=== PATIENT | female | born 1930 | race American Indian/Alaskan Native ===

== ENCOUNTER 2017-08-01 21:55 | Inpatient (IN) | payer MEDICARE, BC, OTHER ==
[~2017-08-01] VITALS: Ht 162.6 cm; Wt 74.8 kg
[~2017-08-01 21:55] MED LIST: ASPIR 8181 MG PO; ASPIRIN EC325 MG PO; ATENOLOL50 MG PO; CARDURA4 MG PO; CIPROFLOXACIN250 MG PO; COUMADIN1 MG PO; COUMADIN5 MG PO; COZAAR50 MG PO; CRESTOR20 MG PO; DAILY VITE1 EACH PO; DOXAZOSIN MESYLA1 MG PO; DOXAZOSIN MESYLA8 MG PO; FELODIPINE ER10 MG PO; FELODIPINE ER5 MG PO; FERROUS SULFAT325 MG PO; FLONASE ALLERG9.9 ML NAS; FUROSEMIDE40 MG PO; GABAPENTIN100 MG PO; GLUCOPHAGE XR500 MG PO; HYDROCODON-ACE1 EA10 PO; LEVOTHYROXINE88 MCG PO; METFORMIN HCL500 MG PO; MIRAPEX0.25 MG PO; NEXIUM20 MG; NEXIUM40 MG PO; NORCO 5-325 TA1 EACH PO; POTASSIUM CHLO10 MEQ PO; VISTARIL25 MG PO; VITAMIN D2000 UNI1 PO; WARFARIN SODIUM1 MG PO
[2017-08-01] MEDS ORDERED: DOXYCYCLINE HY100 MG PO (22:15)
--- OUTSIDE RECORDS SUMMARY | 2017-08-01 22:18 | XMS | Clinical Summary ---
Demographics + + + | Address | [address] [place] [address] RD | | | [place] [address] | + + + | Home Phone | | + + + | Preferred Language | Unknown | + + + | Marital Status | | + + + | Synagogue Affiliation | Unknown | + + + | Race | Unknown | + + + | Ethnic Group | Unknown | + + + Author + + + | Author | [facility] | + + + | Organization | [facility] | + + + | Address | Unknown | + + + | Phone | Unavailable | + + + Support + + + + + | Name | Relationship | Address | Phone | + + + + + | Ernie Folres | ECON | [address] | | | | | [place] | | | | | [address] | | + + + + + | Fahad Flores | ECON | Unknown | | + + + + + Care Team Providers + +------+ + | Care Consultants Intern Name | Role | Phone | + +------+ + | Ulisses Matthews DO | PP | | + +------+ + Allergies + + + + + + | Active Allergy | Reactions | Severity | Noted | Comments | | | | | Date | | + + + + + + | Warfarin | Other (See Comments) | Medium | 06/24/20 | Labile INR | | | | | 13 | | + + + + + + | Chlorpheniramine-Pse | Hives | High | 10/10/19 | | | udoeph | | | 13 | | + + + + + + | Povidone Iodine | Hives | High | 10/10/19 | | | | | | 13 | | + + + + + + | Morphine | Hives | High | 10/10/19 | | | | | | 13 | | + + + + + + | Penicillins | Hives | High | 10/10/19 | | | | | | 13 | | + + + + + + | Vitamin B12 | Hives | High | 10/10/19 | | | | | | 13 | | + + + + + + Current Medications + + +---------+---------+------+------+-------+ | Prescription | Sig. | Disp. | Refills | Star | End | Statu | | | | | | t | Date | s | | | | | | Date | | | + + +---------+---------+------+------+-------+ | pramipexole | Take 0.25 mg by | | | | | Activ | | (MIRAPEX) 0.25 MG | mouth 2 (two) times | | | | | e | | tablet | daily. | | | | | | + + +---------+---------+------+------+-------+ | atenolol | Take 50 mg by mouth | | | | | Activ | | (TENORMIN) 50 MG | daily. | | | | | e | | tablet | | | | | | | + + +---------+---------+------+------+-------+ | triamcinolone | Apply 1 applicator | | | | | Activ | | (KENALOG) 0.5 % | topically 3 (three) | | | | | e | | ointment | times daily as | | | | | | | | needed. | | | | | | + + +---------+---------+------+------+-------+ | fluticasone | 1 spray by Nasal | | | | | Activ | | (FLONASE) 50 MCG/ACT | route 2 (two) times | | | | | e | | nasal spray | daily as needed. | | | | | | + + +---------+---------+------+------+-------+ | levothyroxine | Take 88 mcg by mouth | | | | | Activ | | (SYNTHROID, | every morning | | | | | e | | LEVOTHROID) 88 MCG | before breakfast. | | | | | | | tablet | | | | | | | + + +---------+---------+------+------+-------+ | esomeprazole | Take 40 mg by mouth | | | | | Activ | | (NEXIUM) 40 MG | daily. | | | | | e | | capsule | | | | | | | + + +---------+---------+------+------+-------+ | losartan (COZAAR) | Take 50 mg by mouth | | | | | Activ | | 50 MG tablet | daily. | | | | | e | + + +---------+---------+------+------+-------+ | potassium chloride | Take 20 mEq by mouth | | | | | Activ | | (K-DUR) 10 MEQ | 3 (three) times | | | | | e | | tablet | daily. Take two | | | | | | | | tablets three times | | | | | | | | daily. | | | | | | + + +---------+---------+------+------+-------+ | Magnesium | Take 500 mg by mouth | | | | | Activ | | Gluconate 250 MG | 3 (three) times | | | | | e | | TABS | daily. Take two | | | | | | | | tablets three times | | | | | | | | daily. | | | | | | + + +---------+---------+------+------+-------+ | furosemide (LASIX) | Take 1 tablet by | | | 10/0 | | Activ | | 40 MG tablet | mouth daily. | | | 2/20 | | e | | | | | | 14 | | | + + +---------+---------+------+------+-------+ | felodipine | Take 5 mg by mouth | | | | | Activ | | (PLENDIL) 5 MG 24 hr | daily. | | | | | e | | tablet | | | | | | | + + +---------+---------+------+------+-------+ | rosuvastatin | Take 20 mg by mouth | | | | | Activ | | (CRESTOR) 20 MG | nightly. | | | | | e | | tablet | | | | | | | + + +---------+---------+------+------+-------+ | traMADol (ULTRAM) | Take 50 mg by mouth | | | | | Activ | | 50 MG tablet | every 6 (six) hours | | | | | e | | | as needed for Pain. | | | | | | + + +---------+---------+------+------+-------+ | warfarin | Take 1 mg by mouth | | | 05/0 | | Activ | | (COUMADIN) 1 MG | daily. Pt takes | | | 4/20 | | e | | tablet | different doses per | | | 16 | | | | | day. | | | | | | + + +---------+---------+------+------+-------+ | Cholecalciferol | Take 2,000 Units by | 90 | 3 | 05/0 | | Activ | | (VITAMIN D3) 2000 | mouth daily. | capsule | | 6/20 | | e | | UNITS | | | | 16 | | | | capsuleIndications: | | | | | | | | CKD (chronic kidney | | | | | | | | disease) stage 3, | | | | | | | | GFR 30-59 ml/min, | | | | | | | | Essential | | | | | | | | hypertension, Iron | | | | | | | | deficiency anemia | | | | | | | | due to sideropenic | | | | | | | | dysphagia, | | | | | | | | Proteinuria, Vitamin | | | | | | | | D deficiency | | | | | | | + + +---------+---------+------+------+-------+ Active Problems + + + | Problem | Noted Date | + + + | CKD (chronic kidney disease) stage 3, GFR 30-59 ml/min | 01/17/2014 | + + + + + | Last Assessment & Plan: CKD, stage 3, followed by Dr Rivera. | + + + + + | ONESIMO (acute kidney injury) | 05/07/2013 | + + + | Pulmonary hypertension (HCC) | 05/07/2013 | + + + + + | Overview: Severe. Last Assessment & Plan: Severe Pulmonary | | HTN. Cause not entirely clear. | + + + + + | Proteinuria | 10/09/2012 | + + + + + | Overview: Mild. | + + + + + | HTN (hypertension) with goal to be determined | 10/09/2012 | + + + + + | Last Assessment & Plan: HTN, Hypertensive Heart Disease. | | Hypertension, controlled, continue current meds. | + + + + + | Diabetes mellitus (HCC) | 10/09/2012 | + + + + + | Last Assessment & Plan: DM II, managed by PCP. | + + + + + | Chronic heart failure (HCC) | 10/09/2012 | + + + | Hypothyroidism | 10/09/2012 | + + + | Atrial fibrillation (HCC) | 10/09/2012 | + + + + + | Last Assessment & Plan: Chronic A fib, CVR. 84yo WF, | | recent CVA, right frontal area. Doing relatively well, she is | | back on warfarin being followed by the [place] | | clinic, the amount of warfarin necessary for her appears to be | | 0.5 mg daily, and extremely small dose, but this seems to be | | working for her. Denies any new visual disturbances, dysarthria, | | dysphasia, lateralizing signs or symptoms. Denies any | | significant bleeding or bruising. Tolerating medications. No | | changes in therapy. | + + + + + | Dyslipidemia | 10/09/2012 | + + + | Obesity | 10/09/2012 | + + + | Osteoarthritis | 10/09/2012 | + + + | Vitamin D deficiency | 10/09/2012 | + + + | Iron deficiency anemia | 10/09/2012 | + + + | Secondary hyperparathyroidism (HCC) | 10/09/2012 | + + + | Restless leg syndrome | 10/09/2012 | + + + | Edema of lower extremity | 10/09/2012 | + + + | Chronic low back pain | 10/09/2012 | + + + | Esophageal reflux | 10/09/2012 | + + + | Unspecified disorder of kidney and ureter | 10/09/2012 | + + + | Lichenification and lichen simplex chronicus | 10/09/2012 | + + + Resolved Problems + + + + | Problem | Noted | Resolved | | | Date | Date | + + + + | Iron deficiency | 10/10/19 | | | | 13 | 4 | + + + + Encounters +--------+ + + + + | Date | Type | Specialty | Care Team | Description | +--------+ + + + + | 07/18/ | Documentati | | Kristine Hanks, | | | 2017 | on Only | | [place] | | +--------+ + + + + from Last 3 Months Family History + + +------+ + | Medical History | Relation | Name | Comments | + + +------+ + | Coronary art dis | Father | | | + + +------+ + | Heart failure | Father | | | + + +------+ + | Coronary art dis | Mother | | | + + +------+ + | Heart disease | Mother | | | + + +------+ + | Hypertension | Mother | | | + + +------+ + + +------+ + + | Relation | Name | Status | Comments | + +------+ + + | Father | | | CAD,heart failure | | | | (Age | | | | | 82) | | + +------+ + + | Mother | | | heart disease | | | | (Age | | | | | 87) | | + +------+ + + Social History + +-------+ +--------+------+ | Tobacco Use | Types | Packs/Day | Years | Date | | | | | Used | | + +-------+ +--------+------+ | Never Smoker | | | | | + +-------+ +--------+------+ + + +---------+ + | Alcohol Use | Drinks/We | oz/Week | Comments | | | ek | | | + + +---------+ + | No | | | | + + +---------+ + + + + | Sex Assigned at | Date Recorded | | | | + + + | Not on file | | + + + Last Filed Vital Signs + + + + | Vital Sign | Reading | Time Taken | + + + + | Blood Pressure | 134/55 | 02/25/2016 9:59 AM PST | + + + + | Pulse | 61 | 02/25/2016 9:59 AM PST | + + + + | Temperature | 36.6 C (97.8 F) | 02/25/2016 9:59 AM PST | + + + + | Respiratory Rate | 15 | 02/21/2014 1:12 PM PST | + + + + | Oxygen Saturation | 96% | 02/25/2016 9:59 AM PST | + + + + | Inhaled Oxygen | - | - | | Concentration | | | + + + + | Weight | 63.5 kg (140 lb) | 02/26/2015 12:08 PM PST | + + + + | Height | 160 cm (5' 3") | 02/25/2016 9:59 AM PST | + + + + | Body Mass Index | 24.8 | 02/26/2015 12:08 PM PST | + + + + Plan of Treatment + + + + + | Health Maintenance | Due Date | Last Done | Comments | + + + + + | Diabetic Eye Exam | | | | | | 9 | | | + + + + + | Diabetic Foot Exam | | | | | | 9 | | | + + + + + | Microalbumin | | | | | Screening | 9 | | | + + + + + | Vaccine: | | | | | Dtap/Tdap/Td (1 - | 8 | | | | Tdap) | | | | + + + + + | Vaccine: Zoster (#1) | | | | | | 9 | | | + + + + + | DEXA SCAN SCREENING | | | | | | 4 | | | + + + + + | Vaccine: | | | | | Pneumococcal 65+ | 4 | | | | Low/Medium Risk (1 | | | | | of 2 - PCV13) | | | | + + + + + | Hemoglobin A1c | | 08/03/2016 | | | | 7 | | | + + + + + | Vaccine: Influenza | | | | | (Season Ended) | 8 | | | + + + + + Results Not on filefrom Last 3 Months Insurance + +--------+ +------+-------+ + | Payer | Benefi | Subscriber | Type | Phone | Address | | | t Plan | ID | | | | | | / | | | | | | | Group | | | | | + +--------+ +------+-------+ + | PREMERA | PREMER | xxxxxxxxx | | | [address] [address] | | | A BLUE | | | | [place] | | | [place] | | | | [address] | | | FED | | | | | | | PPO | | | | | + +--------+ +------+-------+ + | REGENCE | REGENC | xxxxxxxxx | | | | | | E-OREG | | | | | | | ON | | | | | + +--------+ +------+-------+ + | /[employer] [facility] | YELLOW | xxxxxxxxx | | | | | PLANS | [place] | | | | | + +--------+ +------+-------+ + | MEDICARE | MEDICA | xxxxxxxxxx | | | [address] | | | RE | | | | [place] [phone] | | | PART A | | | | | | | ONLY | | | | | + +--------+ +------+-------+ + + +--------+ +--------+ + + | Guarantor Name | Accoun | Relation to | Date | Phone | Billing Address | | | t Type | Patient | of | | | | | | | | | | + +--------+ +--------+ + + | JASMYNE FLORES | Person | Self | [birth year] Home: | [address] | | | al/Fam | | [phone] | [phone] | [place] | | | nick | | | [phone] | [address] | + +--------+ +--------+ + +
--- OUTSIDE RECORDS SUMMARY | 2017-08-01 22:18 | XMS | Encounter Summary ---
Demographics + + + | Address | [address] [place] [address] | | | [place] [address] | + + + | Home Phone | | + + + | Preferred Language | Unknown | + + + | Marital Status | | + + + | Gnosticist Affiliation | Unknown | + + + | Race | Unknown | + + + | Ethnic Group | Unknown | + + + Author + + + | Author | [facility] | + + + | Organization | [facility] | + + + | Address | Unknown | + + + | Phone | Unavailable | + + + Support + + + + + | Name | Relationship | Address | Phone | + + + + + | Ernie Flores | ECON | [address] | | | | | [place] | | | | | [address] | | + + + + + | Fahad Flores | Unknown | | + + + + + Care Team Providers + +------+ + | Care Straddle Truck Driver Name | Role | Phone | + +------+ + | Ulisses Matthews DO | PCP | | + +------+ + Encounter Details +--------+ + + + + | Date | Type | Department | Care Team | Description | +--------+ + + + + | 07/18/ | Documentati | [facility] | Kristine Hanks, | | | 2018 | on Only | Cardiology [facility] | [facility] | | | | | [address] | | | | | | [place] | | | | | | [address] | | | | | | [phone] | | | +--------+ + + + + Social History + +-------+ +--------+------+ [...] on file | | + + + as of this encounter Plan of Treatment Not on fileas of this encounter Visit Diagnoses Not on filein this encounter"
--- OUTSIDE RECORDS SUMMARY | 2017-08-01 22:18 | XMS | Clinical Summary ---
Demographics + + + | Address | [address] [place] [address] RD | | | [place] [address] | + + + | Home Phone | | + + + | Preferred Language | Unknown | + + + | Marital Status | | + + + | Islam Affiliation | Unknown | + + + | Race | Unknown | + + + | Ethnic Group | Unknown | + + + Author + + + | Author | [facility] | + + + | Organization | [facility] | + + + | Address | Unknown | + + + | Phone | Unavailable | + + + Support + + + + + | Name | Relationship | Address | Phone | + + + + + | Ernie Flores | ECON | [address] | | | | | [place] | | | | | [address] | | + + + + + | Fahad Flores | ECON | Unknown | | + + + + + Care Team Providers + +------+ + | Care Outpatient Admitting Clerk Name | Role | Phone | + [...] back on warfarin being followed by the [place] | | clinic, the amount of [...] | xxxxxxxxx | | | [address] [address] | | | A BLUE | | | | [place] | | | [place] | | | | [address] | | | FED | | | | | | | PPO | | | | | + +--------+ +------+-------+ + | REGENCE | REGENC | xxxxxxxxx | | | | | | E-OREG | | | | | | | ON | | | | | + +--------+ +------+-------+ + | /[employer] | YELLOW | xxxxxxxxx | | | | | PLANS | [place] | | | | | + +--------+ +------+-------+ + | MEDICARE | MEDICA | xxxxxxxxxx | | | [address] | | | RE | | | | [place] [phone] | | | PART A | | [...] | Self [birth year] Home: | [address] | | | al/Fam | | [phone] | [phone] | [place] | | | nick | | | [phone] | [phone] | + +--------+ +--------+ + +
--- OUTSIDE RECORDS SUMMARY | 2017-08-01 22:18 | XMS | Encounter Summary ---
Demographics + + + | Address | [address] [place] [address] | | | [place] [address] | + + + | Home Phone | | + + + | Preferred Language | Unknown | + + + | Marital Status | | + + + | Zoroastrian Affiliation | Unknown | + + + | Race | Unknown | + + + | Ethnic Group | Unknown | + + + Author + + + | Author | [facility] | + + + | Organization | [facility] | + + + | Address | Unknown | + + + | Phone | Unavailable | + + + Support + + + + + | Name | Relationship | Address | Phone | + + + + + | Ernie Flores | ECON | [address] | | | | | [place] | | | | | [address] | | + + + + + | Fahad Flores | Unknown | | + + + + + Care Team Providers + +------+ + | Care Vp Legal Affairs Name | Role | Phone | + [...] [place] | | | | | | [address] | | | | | | [phone] | | | +--------+ + + + [...]
--- OUTSIDE RECORDS SUMMARY | 2017-08-01 22:18 | XMS | Clinical Summary ---
Demographics + + + | Address | [address] [place] [address] RD | | | [place] [address] | + + + | Home Phone | | + + + | Preferred Language | Unknown | + + + | Marital Status | | + + + | Quaker Affiliation | 1041 | + + + | Race | Unknown | + + + | Ethnic Group | Unknown | + + + Author + + + | Author | [facility] | | | and [place] | + + + | Organization | [facility] | | | and [place] | + + + | Address | Unknown | + + + | Phone | Unavailable | + + + Support + + + + + | Name | Relationship | Address | Phone | + + + + + | Fahad Flores | [place] | [address] | | | | | [place] | | | | | [address] | | + + + + + Care Team Providers + +------+ + | Care Nursery Helper Name | Role | Phone | + +------+ + | Ken Salcido MD | PP | Unavailable | + +------+ + Allergies + + + + + + | Active Allergy | Reactions | Severity | Noted | Comments | | | | | Date | | + + + + + + | Chlorpheniramine | | | | | | Maleate | | | | | + + + + + + | Iodine | | | | | + + + + + + | Morphine | | | | | + + + + + + | Penicillins | | | | | + + + + + + | Propoxyphene | | | 05/14/20 | | | | | | 14 | | + + + + + + | Vitamin B12 | | | | | + + + + + + | Warfarin Sodium | | | | | + + + + + + Current Medications + + +---------+---------+------+------+-------+ | Prescription | Sig. | Disp. | Refills | Star | End | Statu | | | | | | t | Date | s | | | | | | Date | | | + + +---------+---------+------+------+-------+ | ferrous gluconate | 1 tablet by mouth | | | 12/17 | | Activ | | (FERATE) 240 (27 FE) | daily | | | 3 | | e | | MG tablet | | | | 12 | | | + + +---------+---------+------+------+-------+ | losartan (COZAAR) | 1 tablet by mouth | | | 12/17 | | Activ | | 100 MG tablet | twice daily | | | 320 | | e | | | | | | 12 | | | + + +---------+---------+------+------+-------+ | rosuvastatin | Take 20 mg by mouth | | | 12/17 | | Activ | | (CRESTOR) 20 mg | Daily. | | | 320 | | e | | tablet | | | | 12 | | | + + +---------+---------+------+------+-------+ | atenolol | Take 50 mg by mouth | | | 09/1 | | Activ | | (TENORMIN) 50 mg | Daily. | | | 3/20 | | e | | tablet | | | | 12 | | | + + +---------+---------+------+------+-------+ | docusate sodium | Take 100 mg by mouth | | | 1 | | Activ | | (STOOL SOFTENER) 100 | Daily. | | | 3/20 | | e | | mg capsule | | | | 12 | | | + + +---------+---------+------+------+-------+ | aspirin 325 mg | Take 325 mg by mouth | | | 12/17 | | Activ | | tablet | Daily. | | | 3/20 | | e | | | | | | 12 | | | + + +---------+---------+------+------+-------+ | doxazosin | Take 8 mg by mouth | | | 12/17 | | Activ | | (CARDURA) 8 MG | nightly. | | | 3/20 | | e | | tablet | | | | 12 | | | + + +---------+---------+------+------+-------+ | furosemide (LASIX) | 2 tablets every | | | 12/17 | | Activ | | 40 mg tablet | morning and 1 tablet | | | 20 | | e | | | every evening | | | 12 | | | + + +---------+---------+------+------+-------+ | metFORMIN | Take 500 mg by mouth | | | 1 | | Activ | | (GLUCOPHAGE XR) 500 | Daily. | | | 3/20 | | e | | mg 24 hr tablet | | | | 12 | | | + + +---------+---------+------+------+-------+ | hydrOXYzine | Take 25 mg by mouth | | | 091 | | Activ | | pamoate (VISTARIL) | Daily. | | | 320 | | e | | 25 mg capsule | | | | 12 | | | + + +---------+---------+------+------+-------+ | | 1 or 2 tablets every | | | 09/1 | | Activ | | propoxyphene-acetami | 4 hours | | | 3/20 | | e | | nophen (DARVOCET-N | | | | 12 | | | | 100) 100-650 mg per | | | | | | | | tablet | | | | | | | + + +---------+---------+------+------+-------+ | triamcinolone | 1 application | | | 09/1 | | Activ | | (KENALOG) 0.5% | topically 3 times a | | | 3/20 | | e | | ointment | day | | | 12 | | | + + +---------+---------+------+------+-------+ | pramipexole | Take half a tablet | | | 09/1 | | Activ | | (MIRAPEX) 0.25 mg | by mouth twice daily | | | 3/20 | | e | | tablet | each morning and | | | 12 | | | | | evening | | | | | | + + +---------+---------+------+------+-------+ | potassium chloride | 20meq extended | | | 12/17 | | Activ | | (KLOR-CON) 20 MEQ | release tablets. | | | 07/05 | | e | | packet | Take 3 tablets each | | | 12 | | | | | morning and 2 | | | | | | | | tablets each | | | | | | | | evening. | | | | | | + + +---------+---------+------+------+-------+ | fluticasone | 1spray in nostrils 2 | | | 12/17 | | Activ | | (FLONASE) 50 | times a day | | | 07/05 | | e | | mcg/nasal spray | | | | 12 | | | + + +---------+---------+------+------+-------+ | levothyroxine | Take 88 mcg by mouth | | | 12/17 | | Activ | | (SYNTHROID, | Daily. | | | 3 | | e | | LEVOTHROID) 88 mcg | | | | 12 | | | | tablet | | | | | | | + + +---------+---------+------+------+-------+ | multivitamin | 1 tablet by mouth | | | / | | Activ | | (THERAGRAN) per | daily | | | 3/20 | | e | | tablet | | | | 12 | | | + + +---------+---------+------+------+-------+ | felodipine | Take 10 mg by mouth | | | 12/17 | | Activ | | (PLENDIL) 10 MG 24 | Daily. | | | 320 | | e | | hr tablet | | | | 12 | | | + + +---------+---------+------+------+-------+ | RABEprazole | Take 20 mg by mouth | | | 12/17 | | Activ | | (ACIPHEX) 20 MG | Daily. | | | 320 | | e | | tablet | | | | 12 | | | + + +---------+---------+------+------+-------+ | gabapentin | 1 capsule by mouth | 120 | 1 | 05/2 | | Activ | | (NEURONTIN) 100 mg | at bedtime for 7 | capsule | | 20 | | e | | capsuleIndications: | days; then twice | | | 14 | | | | Lumbar spinal | daily for 7 days; | | | | | | | stenosis, Lumbalgia, | then three times | | | | | | | Lumbar | daily for 7 days; | | | | | | | radiculopathy, | then 1 qAM, 1 qNoon, | | | | | | | Neuropathy of both | and 2 qHS | | | | | | | feet | | | | | | | + + +---------+---------+------+------+-------+ Active Problems + + + | Problem | Noted Date | + + + | PURE HYPERCHOLESTEROLEMIA | | + + + | DIABETES MELLITUS, TYPE II | | + + + | HYPERTENSION, BENIGN ESSENTIAL | | + + + | UNSPECIFIED DISORDER OF KIDNEY AND URETER | | + + + + + | Overview: ICD-10 Record update | + + + +---+ | CARDIOMYOPATHY | | + +---+ | OSTEOARTHRITIS, GENERALIZED, MULTIPLE JOINTS | | + +---+ | HYPOTHYROIDISM | | + +---+ | ATRIAL FIBRILLATION | | + +---+ | NEURODERMATITIS | | + +---+ | ANEMIA | | + +---+ Family History + + +------+ + | Medical History | Relation | Name | Comments | + + +------+ + | Heart disease | Father | | | + + +------+ + | Stroke | Father | | | + + +------+ + | Heart disease | Mother | | | + + +------+ + | High blood pressure | Mother | | | + + +------+ + + +------+--------+ + | Relation | Name | Status | Comments | + +------+--------+ + | Father | | | | + +------+--------+ + | Mother | | | | + +------+--------+ + Social History + +-------+ +--------+------+ | [...] + + + | Blood Pressure | 140/86 | 09/05/2013839 PDT | + + + + | Pulse | 60 | 09/05/2013839 PDT | + + + + | Temperature | - | - | + + + + | Respiratory Rate | 18 | 09/05/2013839 PDT | + + + + | Oxygen Saturation | - | - | + + + + | Inhaled Oxygen | - | - | | Concentration | | | + + + + | Weight | 74.4 kg (164 lb) | 09/05/2013839 PDT | + + + + | Height | 160 cm (5' 3") | 09/05/2013839 PDT | + + + + | Body Mass Index | 29.05 | 09/05/2013839 PDT | + + + + Plan of Treatment + + + + + | Health Maintenance | Due Date | Last Done | Comments | + + + + + | Diabetic Eye Exam | | | | | (Bi-Annually) | 7 | | | + + + + + | Diabetic Foot Exam | | | | | | 7 | | | + + + + + | Hemoglobin A1c Q3 | | | | | Months | 7 | | | + + [...] | | | | | Screening | 5 | | | + + + + + | Vaccine: Influenza | | | | | (Season Ended) | 8 | | | + + + + + Results Not on filefrom Last 3 Months Insurance + +--------+ +--------+-------+---------+ | Payer | Benefi | Subscriber | Type | Phone | Address | | | t Plan | ID | | | | | | / | | | | | | | Group | | | | | + +--------+ +--------+-------+---------+ | BCBS | BCBS | xxxxxxxxx | PPO | | | | | [place] | | | | | | | L FEP | | | | | + +--------+ +--------+-------+---------+ | [facility] | IHS | xxxxxxxxx | Indemn | | | | SERVICE | [place] | | ity | | | | | [place] | | | | | + +--------+ +--------+-------+---------+ + +--------+ +--------+ + + | Guarantor Name | Accoun | Relation to | Date | Phone | Billing Address | | | t Type | Patient | of | | | | | | | | | | + +--------+ +--------+ + + | JASMYNE FLORES | Person | Self [birth year] Home: | [address] [facility] | | | al/Fam | | [phone] | [phone] [place] | | | nick | | | [phone] | + +--------+ +--------+ + +
--- OUTSIDE RECORDS SUMMARY | 2017-08-01 22:18 | XMS | Clinical Summary ---
Demographics + + + | Address | [address] [place] [address] RD | | | [place] [address] | + + + | Home Phone | | + + + | Preferred Language | Unknown | + + + | Marital Status | | + + + | Jain Affiliation | 1041 | + + + | Race | Unknown | + + + | Ethnic Group | Unknown | + + + Author + + + | Author | [facility] | | | and Danielana | + + + | Organization | [facility] | | | and Danielana | + + + | Address | Unknown | + + + | Phone | Unavailable | + + + Support + + + + + | Name | Relationship | Address | Phone | + + + + + | Fahad Flores | JAYLON | [address] | | | | | [place] | | | | | [phone] | | + + + + + Care Team Providers + +------+ + | Care Supervisor Plastics Name | Role | Phone | + [...] | | | + +--------+ +--------+-------+---------+ | [facility] | I[facility] | [phone] | Indemn [...] | Self | [birth year] Home: | [address] | | | al/Fam | | 1930 | [phone] | [place] | | | nick | | | [phone] | + +--------+ +--------+ + +
--- OUTSIDE RECORDS SUMMARY | 2017-08-01 23:47 | XMS | Clinical Summary ---
Demographics + + + | Address | [address] [place] [address] RD | | | [place] [address] | + + + | Home Phone | | + + + | Preferred Language | Unknown | + + + | Marital Status | | + + + | Latter-Day Affiliation | Unknown | + + + | Race | Unknown | + + + | Ethnic Group | Unknown | + + + Author + + + | Author | [facility] | + + + | Organization | [facility] | + + + | Address | Unknown | + + + | Phone | Unavailable | + + + Support + + + + + | Name | Relationship | Address | Phone | + + + + + | Ernie Flores | ECON | [address] | | | | | [place] | | | | | [phone] | | + + + + + | Fahad Flores | ECON | Unknown | | + + + + + Care Team Providers + +------+ + | Care Statistical Machine Mechanic Name | Role | Phone | + [...] back on warfarin being followed by the [facility] | | clinic, the amount of [...] | xxxxxxxxx | | | [address] [address] | | | A BLUE | | | | [place] | | | CROSS | | | | [address] | | | FED | | | | | | | PPO | | | | | + +--------+ +------+-------+ + | REGENCE | REGENC | [phone] | | | | | | E-OREG | | | | | | | ON | | | | | + +--------+ +------+-------+ + | /[facility] | YELLOW | xxxxxxxxx | | | | | PLANS | [place]WK | | | | | + +--------+ +------+-------+ + | MEDICARE | MEDICA | xxxxxxxxxx | | | [address] | | | RE | | | | [place] [phone] | | | PART A | | [...] | Self | [birth year] | Home: | [address] [facility] | | | al/Fam | | 1930 | [phone] | [place] | | | nick | | | [phone] | + +--------+ +--------+ + +
--- OUTSIDE RECORDS SUMMARY | 2017-08-01 23:47 | XMS | Encounter Summary ---
Demographics + + + | Address | [address] [place] [address] | | | [place] [address] | + + + | Home Phone | | + + + | Preferred Language | Unknown | + + + | Marital Status | | + + + | Restorationism Affiliation | Unknown | + + + | Race | Unknown | + + + | Ethnic Group | Unknown | + + + Author + + + | Author | [facility] | + + + | Organization | [facility] | + + + | Address | Unknown | + + + | Phone | Unavailable | + + + Support + + + + + | Name | Relationship | Address | Phone | + + + + + | Ernie Flores | ECON | [address] | | | | | [place] | | | | | [phone] | | + + + + + | Fahad Flores | Unknown | | + + + + + Care Team Providers + +------+ + | Care Bead Stringer Name | Role | Phone | + [...] CHU | | | | | | [address] | | | | | | [phone] | | | +--------+ + + + [...]
--- OUTSIDE RECORDS SUMMARY | 2017-08-01 23:47 | XMS | Clinical Summary ---
Demographics + + + | Address | [address] [place] [address] RD | | | [place] [address] | + + + | Home Phone | | + + + | Preferred Language | Unknown | + + + | Marital Status | | + + + | Voodoo Affiliation | 1041 | + + + | Race | Unknown | + + + | Ethnic Group | Unknown | + + + Author + + + | Author | [facility] | | | and Danielana | + + + | Organization | [facility] | | | and Danielana | + + + | Address | Unknown | + + + | Phone | Unavailable | + + + Support + + + + + | Name | Relationship | Address | Phone | + + + + + | Fahad Flores | JAYLON | [address] | | | | | [place] | | | | | [phone] | | + + + + + Care Team Providers + +------+ + | Care Addictions Therapist Name | Role | Phone | + [...] | | | + +--------+ +--------+-------+---------+ | [facility] | IHS | [phone] | Indemn [...] | Self | [birth year] | Home: | [address] [address] [address] | | | al/Fam | | 1930 | [phone] | [place] | | | nick | | | [phone] | + +--------+ +--------+ + +
--- NOTE | 2017-08-02 01:02 | NUR ---
ADMIT TO RM 129 PER STRETCHER AT MIDNIGHT. UNABLE TO MOVE SELF FROM STRETCHER TO BED. IS PAINFUL WHEN MOVED. HAS HX OF ARTHRITIS AND FAMILY STATES HER MOBILITY AT HOME IS DECREASING. AT HOME SHE SITS ON THE SEAT OF A WALKER AND SCOOTS. HAS FALLEN ASLEEP ON TOILET AT HOME AND FELL OFF ONCE. IS NOT ALWAYS COMPLIANT WITH TAKING LASIX AT HOME, TAKES IT WHEN SHE FEELS SHE NEEDS IT. WHEN FIRST MOVED TO BED PT WAS TACHYPNEAC WITH RR UP TO 40. PT WAS ABLE TO FALL ASLEEP WITHIN ABOUT 15 MIN AFTER ARRIVAL AND RR NOW MO 20'S AND LESS LABORED. HX FROM FAMILY. DR SINGH CALLED 0100 RE LABS AND PT STATUS. ORDER FOR MAG SULFATE RECEIVED.
--- NOTE | 2017-08-02 01:49 | NUR ---
AWAKE, HAD TAKEN OFF COVERS TOO WARM. STATES BREATHING FEELS BETTER. DENIES DISCOMFORT.
--- NOTE | 2017-08-02 04:10 | NUR ---
AWKENED FOR VS AND ASSESSMENT. HAS NO C/O AND STATES IS COMFORTABLE.
--- NOTE | 2017-08-02 05:42 | NUR ---
AWAKE, STATES IS FEELING MUCH BETTER THOUGH RR STILL MID TO UPPER 20'S. INFORMED WOULD PROBABLY RECEIVE MORE LASIX TODAY AND VERY IMPORTANT TO TAKE REGULARLY AT HOME TO PREVENT GETTING INTO TROUBLE.
--- NOTE | 2017-08-02 07:30 | NUR ---
BEDSIDE REPORT RECIEVED. PATIENT IS RESTFUL.
--- NOTE | 2017-08-02 08:00 | NUR ---
ASSESSMENT DONE. SON AT BEDSIDE. TALKED WITH PATIENT AND SON ABOUT PLAN OF CARE FOR DAY. BOTH INDICATE UNDERSTANDING. DENIES PAIN, STATES FEELS BETTER THIS MORNING. RESP RATE-36, IS USING ACM FOR BREATHING.
--- NOTE | 2017-08-02 09:30 | NUR ---
REPOSITIONED, DAUGHTER IS AT BEDSIDE.
--- NOTE | 2017-08-02 10:15 | NUR ---
ECHO BEING DONE AT BEDSIDE, O2 TO TRIAL ROOM AIR PER DR. SINGH REQUEST. INR>13, DR. SINGH IS AWARE.
--- NOTE | 2017-08-02 10:40 | NUR ---
ECHO COMPLETE. O2 1 L NC APPLIED, SAT ON RA 87-90%. REPOSITIONED.
--- NOTE | 2017-08-02 12:30 | NUR ---
KCL PO GIVEN. WISHES TO REMAIN IN BED AT THIS TIME. REFUSING SPONGE BATH AT THIS TIME, WILL ATTEMPT LATER THIS AFTERNOON.
--- NOTE | 2017-08-02 16:00 | NUR ---
ASSESSMENT DONE, THEN SPONGE BATH GIVEN. TOLERATED FAIR. HAS INCREASED PAIN WITH MOVEMENT. REFUSING PAIN MDICATION.
--- NOTE | 2017-08-02 16:59 | NUR ---
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 family unsure of usual dry weight since patient has not been able to stand Admit BNP: 1160 SrCr 1.19 Social support system: Family , daughters attententive to today's discussion. Son Feliberto is primary contact. Weight monitoring: Unable to walk well at baseline. Family doubts patient can stand for daily weights. Will consider modification with stringent symptom management. Symptom management: Specific written recommendations to follow-up for ongoing management, and to address early changes symptoms Diet: Usual meals include home cooked food and preprocessed food. Per daughters patient loves soup and in past was not appreciative of heart healthy soups. Physical activity: Sits on her 4 wheel walker for ADLs at home. Does do carbon dioxide operator with this method too. Medication routine: Uses 7 day pill box. Per family patient is knowledgable on medication uses and names. Advanced directive: not discussed at this initial meeting Barriers to self-care include: mobility Self-Management Goal: will discuss with patient Follow-up plans: Will return tomorrow for patient education if her condition allows. Teaching materials given today: [facility] Heart Failure book, Low Sodium Shopping list, Daily weight and symptom monitoring log. Family given direct contact information for this nurse. 20 minutes spent in initial conversation with daughters today.
[2017-08-02] MEDS ORDERED: NITROSTAT0.4 MG SL (17:05)
[2017-08-02] MEDS ORDERED: METOPROLOL SUCC50 MG PO (17:08)
[2017-08-02] MEDS ORDERED: MAGNESIUM250 M1 PO (17:13)
--- NOTE | 2017-08-02 17:14 | EKG ---
[facility] [address] [facility] [place], [place] [address] Signed Atrial fibrillation Pulmonary disease pattern Left anterior fascicular block Septal infarct , age undetermined Abnormal ECG No previous ECGs available Confirmed by DEE SINGH MD ([id number]) on 08/02/2017 5:14:25 PM Electronically Signed By: DEE SINGH MD 08/02/17 1714 PATIENT NAME: JASMYNE BEAR GAMA Electrocardiogram DATE OF : [birth year] PHYSICIAN: DEE SINGH MD REPORT #: [id number] REPORT IS CONFIDENTIAL AND NOT TO BE RELEASED WITHOUT AUTHORIZATION
--- NOTE | 2017-08-02 18:30 | NUR ---
DR. SINGH UPDATED ON U/O. ORDERS RECIEVED TO GIVE LASIX 40 MG IV, THIS DONE.
--- NOTE | 2017-08-02 19:01 | NUR ---
DR. SINGH AWARE OF INR, ORDERS RECIEVED TO GIVE VIT K 5 MG PO. PATIENT IS RESTFUL. DAUGHTERS ARE AT BEDSIDE. REPORT TO NEXT SHIFT.
--- NOTE | 2017-08-02 20:05 | NUR ---
IN TO ASSESS PT AND GIVE PO VIT K. PT AWAKENS EASILY. HAS VERY POOR SHORT TERM MEMORY OF WHICH SHE IS AWARE, DOES NEED FREQ REMINDERS OF WHAT WE ARE DOING. ALSO ASKS IF SHE CAN DRINK ALL SHE WANTS OF WATER. REMINDED THAT SHE CANNOT.HAS SEVERE OSTEO ARTHRITIS AND IS VERY SENSITIVE WHEN ATTEMPTING TO POSITON PT. WILL DOZED BACK OFF EASILY. DAUGHTER IN ROOM.
--- NOTE | 2017-08-02 21:14 | NUR ---
REPOSITIONED UP IN BED. HS MEDS GIVEN. GIVEN TYLENOL 500MG PO FOR DISCOMFORT FROM ARTHRITIS. CATH CARE DONE.
--- NOTE | 2017-08-02 21:56 | NUR ---
C/O ITCHING ON NECK AND BACK, ASKING IF THERE ARE HIVES, NO RASH NOTED. PT AND FAMILY STATES SHE OCC BREAKS OUT IN HIVES AT HOME AND TAKES HYDROXIZINE FOR THIS AND WOULD LIKE SOME. DR SINGH NOTIFIED AND ORDER RECEIVED. GIVEN 25MG HYDROXIZNE PO.
--- NOTE | 2017-08-02 23:24 | NUR ---
FELL ASLEEP AFTER GIVEN THE HYDROXAZINE. AWAKENES BRIEFLY BUT DOES NOT STAY AWAKE. COMFORTABLE AT THIS TIME. DAUGHTER TO GO HOME AND NOW SON IN ROOM.
--- NOTE | 2017-08-03 02:15 | NUR ---
AWAKE, FUSSING WITH OXYMENTER AND HAS BEEN FOR SOME TIME. REMOVED AND WILL SPOT CHECK IT. PT REPOSITIONED.
--- NOTE | 2017-08-03 03:03 | NUR ---
NOT SLEEPING, GIVEN CRACKERS PER REQUEST.
--- NOTE | 2017-08-03 03:24 | NUR ---
ENJOYED THE CRACKERS. HAVING TROUBLE SLEEPING BECAUSE SHE IS "WORRIED ABOUT THE WATER" IE DRINKING TOO MUCH. TOLD PT THAT SHE CAN DRINK WHAT IS IN THE CUP, IT WAS MEASURED. ALSO STATES HER THROAT BECOMES DRY JUST SHE IS ABOUT TO FALL ASLEEP. NO OTHER C/O.
--- NOTE | 2017-08-03 05:05 | NUR ---
PT TRYING TO TURN TO SIDE. ASSISTED TO TURN TO SIDE.
--- NOTE | 2017-08-03 06:13 | NUR ---
RESTING DOZES OFF AND ON. VERY FOCUSED ON FLUID RESTRICTION.
--- NOTE | 2017-08-03 07:46 | NUR ---
BREAKFAST ORDERED FOR PATIENT. PT ALSO TAKEN OFF OXYGEN AT THIS TIME HER SP02 WAS 100% ON 1 L NC. PATIENT'S DAUGHTER AND SON IN ROOM.
--- NOTE | 2017-08-03 07:50 | NUR ---
PT SITTING IN BED. FAMILY AT BEDSIDE. PT IS SALINE LOCKED AT THIS TIME. BREAKFAST ORDERED.
--- NOTE | 2017-08-03 08:50 | NUR ---
PT ASSISTED WITH CLEANSING NARES. NO BLEEDING NOTED. SLIGHT CRUSTING NOTED AROUND RIGHT NARE. PT'S DAUGHTER REQUESTING SALINE RINSE TO HELP WITH DRY NASAL PASSAGEWAY.
--- NOTE | 2017-08-03 09:30 | NUR ---
CASEMANAGEMENT IN ROOM AT THIS TIME. FAMILY AT BEDSIDE.
--- NOTE | 2017-08-03 09:48 | NUR ---
MED REC COMPLETE
--- NOTE | 2017-08-03 10:55 | NUR ---
REPORT GIVEN TO SONDRA GANN WHO IS GOING TO RESUME CARE FOR PATIENT ON MED/SURG. PATIENT WILL NOT BE ON TELEMETRY, BUT WILL TRANSFER WITH CONT PULSE OX. CONTINUE TO MONITOR.
--- NOTE | 2017-08-03 11:00 | NUR ---
PT RECEIVED FROM CCU. PT TRANSFERED VIA BED. PT ON ROOM AIR, LUNG SOUNDS CLEAR WITH CRACKLES TO LEFT LOWER LOBE, PT TACHYPNIC, RR 46, O2 SATS 90-92%. PT DENIES PAIN. PT WITH LANDA CATH IN PLACE, DRAINING FREELY. PT SALINE LOCKED. BOWEL TONES ACTIVE, DENIES NAUSEA, ASSISTED WITH ORDERING LUNCH. PT WIHTOUT EDEMA, CMS INTACT. PT DENIES OTHER NEEDS AT THIS TIME.
--- NOTE | 2017-08-03 12:45 | NUR ---
PT CONTINUES TO BE TACHYPNIC, RR 40, O2 SATS 91%. PT TAKING SHALLOW BREATHS. MD NOTIFIED, NO NEW ORDERS AT THIS TIME.
--- NOTE | 2017-08-03 13:45 | NUR ---
PT TURNED TO LEFT SIDE. PT O2 SATS 97% ON 1L NC, WEANENED TO ROOM AIR. PT CONTINUES TO BE TACHYPNIC, AWARE. PT DENIES OTHER NEEDS AT THIS TIME.
--- NOTE | 2017-08-03 14:01 | NUR ---
PT O2 SATS 88% ON ROOM AIR, PT CONTINUES TO BE TACHYPNIC. PLACES ON 0.5L NC. NURSE AIDES IN ROOM FOR VITAL SIGNS. PT DENIES OTHER NEEDS AT THIS TIME.
--- NOTE | 2017-08-03 14:07 | NUR ---
PATIENT REPOSITIONED ONTO HER LEFT SIDE. HEEL PROTECTOR ON PATIENTS LEFT ELBOW. PATIENTS FAMILY IN ROOM. CALL LIGHT IN REACH. NO OTHER NEEDS AT THIS TIME.
--- NOTE | 2017-08-03 15:15 | NUR ---
PATIENT REPOSITIONED TO RIGHT SIDE PER REQUEST. FAMILY IN ROOM WITH PATIENT. PATIENT STATES THAT SHE'S COMFORTABLE AT THIS TIME. CALL BUTTON IN REACH. NO OTHER NEEDS AT THIS TIME.
--- NOTE | 2017-08-03 15:30 | NUR ---
PT RESTING IN BED. PT GIVEN SCHEDULED MEDICATIONS. PT REPOSITIONED IN BED. PT ON 0.5L NC, O2 SATS 95%, CONTINUES TO BE TACHYPNIC. PT DENIES OTHER NEEDS AT THIS TIME. FAMILY AT BEDSIDE.
--- NOTE | 2017-08-03 17:21 | NUR ---
PT RECEIVED FROM CCU. PT ON 0.5L NC, DESATS TO 85-87 ON ROOM AIR, LUNG SOUNDS CLEAR WITH CRACKLES TO LLL. SALINE LOCKED, IV LASIX. PT WITH FOLAY CATH, QS. PT TOLERATING CARDAIC WITH 1500 ML FLUID RESTRICTION, PT ONLY HAS 300 ML FOR OVERNIGHT, DISCUSSED WITH PT. [facility] INATCT, WITHOUT EDEMA. UP WITH 2PA MAX, VERY WEAK.
--- NOTE | 2017-08-03 17:30 | NUR ---
PT GIVEN PRN TYLENOL FOR PAINFUL JOINTS. PT COMPLETED WITH EATING DINNER. PT DENIES OTHER NEEDS AT THIS TIME. FAMILY AT BEDSIDE.
--- NOTE | 2017-08-03 18:16 | NUR ---
PATIENTS LANDA EMPTIED WITH 450ML IN BAG, BUT CLAMP ON LANDA BAG HAD NOT BEEN CLAMPED SHUT ALL THE WAY AND SOME OUTPUT LEAKED ONTO THE FLOOR. THIS RUBBLE PLACER CHARTED IT UNMEASURED OUTPUT.
--- NOTE | 2017-08-03 18:22 | NUR ---
PATIENT RESTING IN BED, FAMILY IN ROOM. PATIENT INQUIRED ABOUT WHAT MEDICATIONS SHE IS ALLOWED TO HAVE BEFORE SHE FALLS ASLEEP. RN NOTIFIED. PATIENT'S LANDA EMPTIED, CALL LIGHT IN REACH. NO OTHER NEEDS AT THIS TIME.
--- NOTE | 2017-08-03 19:15 | NUR ---
RECIEVED REPORT FROM DAY SHIFT RN. PATIENT APPEARS RESTING IN BED WITH EYES CLOSED. FAMILY MEMBER AT THE BEDSIDE. OXYGEN SATURATION 96 ON 0.5L OF OXYGEN VIA NC. CALL LIGHT WITHIN REACH. PATIENT AND FAMILY DENY ANY NEEDS AT THIS TIME.
--- NOTE | 2017-08-03 20:55 | NUR ---
SENIOR BUYER PLACED PATIENT ON THE BS. SENIOR BUYER PASSED CARE TO RN. PATIENT 2 PERSON AND DEEPA LIFTED FROM BSC TO BED. PATIENT STATED FEARFUL DURING TRANSFER. RN COMMUNICATED THROUGH TRANSFER. PATIENT POSITIONED BACK IN BED. 2100 MEDICATIONS GIVEN PER ORDER. PATIENT ON CONTINUOUS OXYGEN SATURATION MONITOR. OXYGEN SATURATION 100 ON 0.5L OF OXYGEN VIA NC. PATIENT HAS LANDA IN PLACE, URINE OUTPUT QS. PATIENT IS PAINFUL WITH MOVEMENT. THERAPEUTIC COMMUNICATION PROVIDED. FAMILY PLANNING TO STAY IN ROOM OVERNIGHT, LINEN PROVIDED. PATIENT DENIES ANY OTHER NEEDS AT THIS TIME. PATIENT APPEARS RESTING IN BED. CALL LIGHT WITHIN REACH.
--- NOTE | 2017-08-03 23:48 | NUR ---
PATIENT APPEARS RESTING IN BED WITH EYES CLOSED. OXYGEN SATURATION IS 100 ON 0.5L OF OXYGEN VIA NC AND HEART RATE OF 77BPM. PATIENTS FAMILY AT BEDSIDE, WARM BLANKETS PROVIDED. FAMILY DENIES ANY OTHER NEEDS. CALL LIGHT WITHIN REACH.
--- NOTE | 2017-08-04 02:20 | NUR ---
PATIENTS LANDA EMPTIED. PATIENT REPOSITIONED TO RIGHT SIDE. PILLOW PLACED BEHIND HER BACK. PATIENT STATES PAIN WITH MOVEMENT. PATIENT DENIES THE NEED FOR PAIN MEDICATION. PATIENT 97 ON 0.5L OF OXYGEN VIA NC, PULSE OX IN PLACE. CATH CARE COMPLETED. PATIENT DENIES ANY OTHER NEEDS. CALL LIGHT WITHIN REACH. FAMILY AT BEDSIDE.
--- NOTE | 2017-08-04 04:12 | NUR ---
PATIENT RESTING WITH EYES CLOSED. RR 32. PULSE OX 97 ON 0.5L OF OXYGEN VIA NC. PATIENTS HEART RATE 88. CALL LIGHT WITHIN REACH. FAMILY AT BEDSIDE.
--- NOTE | 2017-08-04 05:22 | NUR ---
PATIENT RESTED THROUGHOUT THE NIGHT. PATIENT NONAMBULATORY, DEEPA LIFT USED FOR TRANSFERS. PATIENT ON CONTINUOUS PULSE OX. PATIENT ON 0.5L OF OXYGEN VIA NC. PATIENT ON A 1500ML FLUID RESTRICTION. PATIENT HAS INCREASED PAIN WITH MOVEMENT. PATIENT REPOSITIONED OFTEN FOR COMFORT AND TO PREVENT SKIN BREAK DOWN. PATIENT INCREASED RESPIRATORY RATE AND SOB. PATIENT SL PER ORDER. IV FLUSHED WELL. LANDA IN PLACE, URINE OUTPUT QS. PATIENT IS FORGETFUL AT TIME. PATIENT USES CALL LIGHT APPROPRIATELY. FAMILY AT BEDSIDE.
--- NOTE | 2017-08-04 06:42 | NUR ---
PATIENT APPEARS RESTING IN BED. PATIENT RATES PAIN 4/10, DENIES ANY PRN PAIN MEDICATION AT THIS TIME. PATIENT LANDA EMPTIED, OUTPUT QS. PATIENT DENIES ANY NEEDS. CALL LIGHT WITHIN REACH. FAMILY AT BEDSIDE. PATIENT OXYGEN SATURATION 96 ON 0.5L OF OXYGEN VIA NC. PATIENT HEART RATE 86.
--- NOTE | 2017-08-04 11:48 | NUR ---
ROUNDED WITH DR. SINGH, NEW ORDERS TO DC CATHETER. WHILE IN ROOM ASSISTED PT TO BEDSIDE MAX ASSIST. PHYSICIAN PLANNED FOR DISCHARGE TO SNF. PT APPEARED MORE OPEN TO THE IDEA, IS NOW TALKING WITH DRUG AND ALCOHOL TREATMENT SPECIALIST CAESAR. PT TOLERATED REMOVAL OF CATHETER. PROVIDED EDUCATION WITH VOIDING. PT SETUP TO EAT LUNCH.
--- NOTE | 2017-08-04 12:15 | NUR ---
AFTER TALKING WITH THE PT AND FAMILY (2 DAUGHTERS--PITER AND FROILAN) DR SINHG STATED THAT HE FELT SHE NEEDED TO HAVE REHAB. PT ADAMANTLY TOLD HER SHE WOULD NOT GO TO [facility], WANTED TO GO TO [facility]. HE (DR SINGH) CAME TO ME AND ASKED ME TO VISIT WITH THE FAMILY. WENT AND DISCUSSED WITH PT AND FAMILY, THEY DECIDED ON [facility]. I CALLED AND TALKED WITH FAUSTO FROM [facility], HE SAID THEY HAVE ROOM. FAX THE CHART. I DID INCLUDING FACESHEET, ER NOTES, H AND P, PROG NOTES, PT EVAL AND NOTES TO THEM. RECIEVED FAX CONFIRMATION. FAUSTO STATED SHE WOULD BE WELCOME TO COME TOMORROW.
--- NOTE | 2017-08-04 12:27 | NUR ---
MEDS WERE DUE. PT WAS NAPPING UPON ENTERING ROOM. ADJUSTED HEAD OF BED UP TO FACILITATE EASIER EATING AND MEDICATION ADMINSTRATION, AFTER PT WAS FULLY AWAKE. PT TOLLERATED MEDICATIONS WELL. CALL LIGHT WITHIN REACH. PT HAS NO FURTHER COMPLAINTS AT THIS TIME. PT LUNCH WAS GIVEN TO HER ONCE SHE WAS READY. FAMILY WAS IN ROOM.
--- NOTE | 2017-08-04 14:04 | NUR ---
PT IN BED, DAUGHTER PITER BY HER SIDE. VERY LITTLE RESPONSE FROM PT, HER DAUGHTER THOUGH EXPRESSED SOME EXCITEMENT IN IMPROVEMENT SHE HAS SEEN IN PT. PITER FEELS SHE UNDERSTANDS TREATMENT, AND IS HOPEFUL FOR HER MOTHER. I EXTENDED A BLESSING, WILL FOLLOW NEEDED
--- NOTE | 2017-08-04 14:05 | NUR ---
PHYSICAL THERAPY TO ROOM TO EVALUATE PATIENT SITTING UP, PATIENT STILL NEEDING ASSISTANCE WITH SITTING AT EDGE OF BED. TITRATING PATIENT OFF OF OXYGEN, NOW ON 0.5 L NC 93%.
--- NOTE | 2017-08-04 15:34 | NUR ---
pPT REQUESTING PAIN MEDICATION. GIVEN 500 MG TYLENOL. PT REPOSITIONED IN BED. PT DENIES OTHER NEEDS AT THIS TIME. PT ENCOURAGED TO DRINK MORE WATER.
--- NOTE | 2017-08-04 17:55 | NUR ---
PT IS SITTING UP IN BED RESTING SAFELY WITH CALL LIGHT IN REACH. PT DID NOT NEED ANYTHING AT THE MOMENT
--- NOTE | 2017-08-04 18:29 | NUR ---
PATIENT WORKED WITH PTX2 TODAY, APPEARS MUCH STRONGER GETTING TO EDGE OF BED. CONTINUES TO BE A 2-3 PERSON ASSIST TO BSC. LANDA REMOVED AT 1130, UP TO BSC THIS EVENING, PATIENT ABLE TO URINATE. ATTEND ON. RATES PAIN 6/10 ON PAIN SCALE, TYELENOL PO INCREASED TO 1GM Q4HR PRN. PATIENT HAD 2 DOSES TODAY. EATING WELL, SOME SOB WITH EXERTION. IV LASIX DC'D. WILL TRANSITION TO PO LASIX TOMORROW, AND POSSIBLY TRANSFER TO SNF IN [place] FOR STRENGTHENING.
--- NOTE | 2017-08-04 19:20 | NUR ---
RECEIVED BEDSIDE REPORT FROM JOSE DE JESUS RN. PT SESTING IN BED. CONT PULSE OX IN PLACE. 0.5L NC IN PLACE. SATURATION AND HEART RATE WNL. CALL LIGHT WITHIN REACH. PT REQUESTED HEATING PACK FOR LEFT HIP.
--- NOTE | 2017-08-04 19:21 | NUR ---
HELPED GET PATIENT UP TO THE BSC AND ALSO PUT HER BACK TO BED. CHANGED BED LINENS.
--- NOTE | 2017-08-04 20:45 | NUR ---
ROUNDED CHARGE. PATIENT IS RESING IN BED. PULSE OX READINGS ARE WNL. FAMILY AT THE BEDISDE. NO NEEDS NOTED. CALL LIGHT IN [facility].
--- NOTE | 2017-08-04 21:15 | NUR ---
BLADDER SCANNED PT DUE TO LOW URINE OUTPUT. SCANNED 255. ENCOURAGE PO INTAKE. CALL LIGHT WITHIN REACH.
--- NOTE | 2017-08-04 22:02 | NUR ---
CALLED MD ABOUT LOW URINE OUTPUT. NO NEW ORDERS AT THIS TIME.
--- NOTE | 2017-08-04 22:57 | NUR ---
ASSESSMENT COMPLETED. HEART TONES IRREGULAR. LUNGS ARE DIM IN BASES WITH FINE CRACKLES. PT HAS DISCOLORATION TO BILAT LE. PT REPORTED PAIN 5/10. TYLENOL GIVEN. NO BOWEL MOVEMENT NOTED DURING HOSPITAL STAY.KASH CHILDRESS INITIATED. A/O. FOLLOWS COMANDS AND COOPERATIVE WITH CARES. REPOSITIONED PT IN BED. CALL LIGHT WITHIN REACH.
--- NOTE | 2017-08-04 23:33 | NUR ---
PT APPEARS TO BE SLEEPING. PT PREFERS LIGHT ON. 0.5 L O2 NC IN PLACE. SATURATIONS AN PULSE WNL. CALL LIGHT WITHIN REACH.
--- NOTE | 2017-08-05 01:23 | NUR ---
pulse ox alarming. pt probe had fallen off. placed new probe. pt appears to be breathing shallow. tried to encourage is use. pt unable to follow directions of use. cont to encourage. pt back to sleep. position changed. call light within reach.
--- NOTE | 2017-08-05 02:00 | NUR ---
2P PIVOT ASSIST TO BSC WITH GAITBELT. PT TOLERATED WELL. 300ML URINE OUTPUT. BACK TO BED. CALL LIGHT WITHIN REACH. WATER REFRESHED.
--- NOTE | 2017-08-05 04:35 | NUR ---
PT APPEARS TO BE SLEEPING. RESPIRATIONS WNL CALL LIGHT WITHIN REACH. FAMILY AT BEDSIDE. CONT POX IN PLACE. SATURATIONS AND HEART WNL. PT FLOATED ON PILLOWS.
--- NOTE | 2017-08-05 05:06 | NUR ---
PT SLEPT THROUGHOUT THE NIGHT. PT REQUESTED TYLENOL X2 THIS SHIFT. 2P PIVOT TRANSFER TO [facility]. 300 OUTPUT THIS SHIFT. FINE CRACKLES IN BASE OF LUNGS. HEART TONES IRREGULAR. PT IS ON A CARDIAC DIET. DAILY WEIGHTS. FLUID RESTRICTION HAS BEEN DC'D.
--- NOTE | 2017-08-05 07:40 | NUR ---
2 PERSON ASSIST WITH ACCREDITATION MANAGER ELIAS TO CAMMODE WITH GAIT BELT. PATIENT VERY RELUCTANT TO STAND, AFRAID OF FALLING. PATIENT USED CALL LIGHT APPROPRIATELY WHEN FINISHED. PATIENT SITTING UP IN BED, BREAKFAST IN FRONT, DAUGHTER IN RM. PATIENT AGREED TO BED BATH TODAY. CALL LIGHT IN REACH. FRESH ICE WATER GIVEN.
--- NOTE | 2017-08-05 08:00 | NUR ---
VERBAL REPORT FROM NIGHT NURSE, PATIENT SITTING UP IN BED. TITRATED OXYGEN TO ROOM AIR. PATIENT EATING BREAKFAST, TOLERATING ACTIVITY WELL. ASSOCIATE COUNSEL ADMINISTERING MORNING MEDICATIONS.
--- NOTE | 2017-08-05 10:09 | NUR ---
PT WAS PREVIOUSLY TAKEN OFF OXYGEN BY RT. PT OXYGEN SATS DROPPED DOWN TO 75%. PT PLACED BACK ON OXYGEN, 1/2 LPM VIA NC. PT OXYGEN SATS INCREASED TO 99%. PT WAS WOKEN UP AND WAS ABLE TO ANSWER FOCUSED ASSESSMENT QUESTIONS. PT STATED SHE HAD NO PAIN OR PROBLEMS BREATHING. CALL LIGHT LEFT IN REACH. PT FAMILY IN ROOM. PT FAMILY EDUCATED ON POSSIBLE DISCHARGE.
--- NOTE | 2017-08-05 10:30 | NUR ---
THIS NURSE ALERTED THAT STUDENT NURSE AND FLOAT NURSE WITNESSED OXYGEN SATURATION DROP TO 75% ON PULSE OX, HOWEVER PATIENT WAS NOT CYANOTIC, OR DID SHE HAVE INCREASED WOB. DISCUSSED WITH RT DARLING AND DR. SINGH, PATIENT THEN UP SHOWERED ON ROOM AIR AND SATURATIONS MAINTAINED. THEN UP TO RECLINER AND AWAKE. PATIENT STATES " I FEEL LIKE MY BREATHING IS BETTER". PATIENT DOES NOT QUALIFY FOR OXYGEN, AND ORDERED TO KEEP PATIENT ON ROOM AIR. VS STABLE. PATIENT AT BASELINE HAS INCREASED RESPIRATIONS AND SHALLOW BRETHING, IS NOT ABLE TO INFLATE WAFER ON IS.
--- NOTE | 2017-08-05 11:28 | NUR ---
PT WAS SHOWERED, HAIR WASHED, MICHELLE CARE AND ORAL CARE DONE. HAIR WAS BLOW DRYED AND STYLED IN A BUN REQUESTED BY PT. PT WAS THEN TRANSFERED BACK TO BED VIA TWO PERSON MANUAL LIFT. PT HAD ATTEND PUT ON AND THEN WAS TRANSFERED TO BEDSIDE CHAIR. PT IS NOW SITTING UP IN CHAIR WITH CALL LIGHT IN REACH, EATING HER LUNCH.
[2017-08-05] MEDS ORDERED: WARFARIN SODIUM1 MG PO ×2 (12:00→12:03)
[2017-08-05] MEDS ORDERED: COUMADIN1 MG PO (12:01)
[2017-08-05] MEDS ORDERED: GABAPENTIN100 MG PO (12:04)
[2017-08-05] MEDS ORDERED: TORSEMIDE20 MG PO (12:05)
[2017-08-05] MEDS ORDERED: POTASSIUM CHLO10 MEQ PO (12:05)
[2017-08-05] MEDS ORDERED: DEEP SEA44 ML NAS (12:05)
[2017-08-05] MEDS ORDERED: SENNA-TIME S T1 EACH PO (12:06)
--- NOTE | 2017-08-05 12:33 | NUR ---
FAXED ORDERS TO [facility]. INCLUDING KWAN. TALKED WITH PT AND HER DAUGHTER REYES. REASSURED PT IT IS FOR REHAB, NOT TO GO THERE TO LIVE. RECIEVED FAX CONFIRMATION OF THE ORDERS.
--- NOTE | 2017-08-05 13:09 | NUR ---
2 person assist with executive vice president and chief operating officerdagoberto Brown from cammode to wheelchair. Family in rm. patient wearing hospital gown home. fresh ice water given.
--- NOTE | 2017-08-05 13:58 | NUR ---
FAUSTO FROM [facility] CALLED STATES THE ORDERS ARE APPROVED AND PT CAN BE ON HER WAY. GAVE DIRECTIONS TO REYES FOR WHERE TO GO.
== END 2017-08-05 13:55 | DRG 293 ==
LOC: ED 21:55 → CCU 21:56 → MS 08-03 11:10
PROVIDERS: ADMIT Internal Medicine
DX: I50.23 Acute on chronic systolic (congestive) heart failure (principal); I08.3 Combined rheumatic disorders of mitral, aortic and tricuspid valves; I27.29 Other secondary pulmonary hypertension; I48.2 Chronic atrial fibrillation; D50.9 Iron deficiency anemia, unspecified; M19.90 Unspecified osteoarthritis, unspecified site; I10 Essential (primary) hypertension; E03.9 Hypothyroidism, unspecified; E78.5 Hyperlipidemia, unspecified; K21.9 Gastro-esophageal reflux disease without esophagitis; G25.81 Restless legs syndrome; I69.328 Other speech and language deficits following cerebral infarction; Z88.5 Allergy status to narcotic agent; Z88.0 Allergy status to penicillin; Z88.8 Allergy status to other drugs, medicaments and biological substances; Z79.01 Long term (current) use of anticoagulants; Z79.891 Long term (current) use of opiate analgesic; Z79.51 Long term (current) use of inhaled steroids; Z79.899 Other long term (current) drug therapy
CPT/HCPCS: 36415; 51702; 71045; 80048; 80053; 81001; 82607; 82728; 82746; 83540; 83735; 83880; 84466; 84484; 85025; 85045; 85379; 85610; 93005; 93010; 93306; 94667; 94668; 96374; 96375; 97110; 97162; 97530; 99285; J3475; Q0177